=== PATIENT | male | born 1985 | race Caucasian/White ===

== ENCOUNTER → 2016-12-09 | Outpatient (REF) | LOC: WSOH 08:18 | DX: Z02.89 Encounter for other administrative examinations (principal) ==

== ENCOUNTER 2018-08-04 19:40 | Emergency (ER) | payer OTHER ==
[~2018-08-04] VITALS: Ht 177.8 cm; Wt 80.0 kg
[2018-08-04 19:42] VITALS: TEMP 98
[2018-08-04] MEDS ORDERED: ZOFRAN ODT4 MG PO (20:06)
[2018-08-04] MEDS ORDERED: FLEXERIL 1010 MG/TAB PO (20:06)
[2018-08-04 20:17] VITALS: BP 142/90; PULSE 60
== END 2018-08-04 20:18 | disposition home or self-care (01) ==
LOC: COL.ER 19:40
DX: M54.2 Cervicalgia (principal); M54.9 Dorsalgia, unspecified; J45.909 Unspecified asthma, uncomplicated; V43.53XA Car driver injured in collision with pick-up truck in traffic accident, initial encounter